=== PATIENT | female | born 1990 ===

== ENCOUNTER 2020-11-04 06:50 | Day surgery (SDC) | payer OTHER ==
[~2020-11-04 06:50] MED LIST: PEPCID AC20 MG PO
[2020-11-04] MEDS ORDERED: ULTRAM50 MG PO (10:37)
== END 2020-11-04 16:30 | disposition home or self-care (01) ==
LOC: CIR.AMB 06:50
PROVIDERS: ATTEND Surgery
DX: D12.9 Benign neoplasm of anus and anal canal (principal); Z20.822 Contact with and (suspected) exposure to COVID-19